=== PATIENT | male | born 1990 | race Caucasian/White ===

== ENCOUNTER 2025-10-19 10:45 | Outpatient (AMB) | payer OTHER, SELFPAY ==
[2025-10-19 10:52] VITALS: BMI 31.4
--- NOTE | 2025-10-19 10:52 | A.PHYSOV_ITS ---
Vital Signs 10/19/25 10:52 Height 5 ft 11 in Weight 225 lb BMI 31.4 Intake Visit Reasons: neck and back pain Intake Note: Patient is a 35 year old male here for back and neck pain. Extension Service Agent Required: No Allergies No Known Allergies Allergy (Verified 10/19/25 10:54) HPI Comments Details: History of Present Illness The patient is a 35 year old individual presenting for follow-up of worsening neck pain. The patient reports being in good condition for the past four weeks, but the pain has recently worsened. The pain originates in the neck, radiates to the middle of the back and around the shoulder blade, and is described as an itching, burning sensation. Associated symptoms include numbness in the left arm and on the side of the back. Patient completed a 6 week physician directed home exercise plan without relief of his symptoms. He has been using gabapentin as well. 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 The patient manages the pain with gabapentin 300 mg at night, as daytime use is not possible due to the job, and reports it is sometimes helpful. A previous MRI from 2022 showed mild narrowing at C5-6 on the left side. Past medical history is notable for a heart problem, and the patient denies any history of diabetes. Pain Description - Onset: The patient had been doing well for about four weeks, but the pain has worsened recently. - Location: The pain begins in the neck and extends to the middle of the back and around the shoulder blade. - Radiation: The pain radiates down the left arm. - Quality: Described as an itching and burning pain. - Associated symptoms: Numbness is present in the left arm and on the side of the back. - Exacerbating factors: Symptoms worsen with driving all day. - Relieving factors: Experiences some relief with gabapentin taken at night. COUNT INCLUDES THE [facility] Social History (Updated 10/19/25 @ 10:55 by Shiolh Moulton MA) Alcohol intake: current Alcohol intake frequency: holidays/special occasions only Patient Tobacco Use Status: Never used Tobacco Use of substances other than those prescribed or required for medical reasons: No Review of Systems Narrative Review of Systems - Neurological: Reports an itching, burning pain with associated numbness in the left arm and on the side of the back. - Musculoskeletal: Reports pain starting in the neck and radiating to the middle back and shoulder blade area. - Cardiovascular: Reports a history of heart problems. - Endocrine: Denies diabetes. Physical Exam Exam Exam: Physical Exam Cervical Spine: Examination of the cervical spine, there is no visible swelling or deformity. He is tender to left upper trapezius to palpation. He is otherwise nontender. Full range of motion of the cervical spine with pain. Special Tests: Axial Compression test: Negative Spurlings test: Negative Lhermitte's sign is Negative Upper Extremities: Full range of motion bilateral upper extremities. Equal cell biologist strength bilaterally. Neuro: Sensation: Intact to upper extremities bilateral to light touch Strength C5 (Elbow Flexion): 5/5 on the left and 5/5 on the right. C6 (Elbow Ext): 5/5 on the left and 5/5 on the right. C7 (Elbow Ext): 5/5 on the left and 5/5 on the right. C8 (Finger Flex): 5/5 on the left and 5/5 on the right. T1 (Finger Abd/Add): 5/5 on the left and 5/5 on the right. DTR: C5 (Biceps): Left 2 Right 2 C6 (Brachioradialis): Left 1 Right 1 C7 (Triceps): Left 2 Right 2 Levin sign: Negative No pathologic clonus. No involuntary movement. Vital Signs: BMI result Body Mass Index 31.4 Assessment & Plan Assessment & Plan (1) Cervical radiculopathy: Code(s): M54.12 - Radiculopathy, cervical region Category: Medical (2) Cervicalgia: Code(s): M54.2 - Cervicalgia Category: Medical Plan Pain Management - Affect: The patient reports the pain is severe, stating, it's killing me. - Analgesia: Takes gabapentin 300 mg at night, which is sometimes helpful. 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 - Activities of Daily Living: Pain is exacerbated by driving all day for work. - Aberrant Drug-Related Behaviors: None reported. Plan Patient was informed and verbally consented to the use of an ambient scribe for clinic note documentation during this visit. 1. Cervical Radiculopathy The patient's symptoms are consistent with the previous 2022 MRI finding of mild C5-6 narrowing on the left, though the condition may have worsened. I recommend the left C6 TFESI with sedation secondary to anxiety and needle phobia.. The goal is at least a 50% reduction in pain for three to six months, with the understanding that this is not a curative treatment. We discussed the risks, complications and benefits. The procedure will be performed under x-ray guidance by Dr. Dee, and the patient has consented to proceed with the option for sedation. A refill for gabapentin 300 mg at night was discussed; the patient will check for existing refills and call if a new prescription is required. A follow-up is scheduled for three weeks post-injection to assess efficacy. Orders: Referrals Physiatry Procedure Notification M54.12 - Radiculopathy, cervical region Coding Level of Care Code Tele Est Pt Level 4 (68339) Diagnoses Cervical radiculopathy M54.12 Cervicalgia M54.2
--- OUTSIDE RECORDS SUMMARY | 2025-10-19 13:04 | XMS_ITS | Clinical Summary ---
Author Organization [facility] Address [address] [place] [address] Phone Care Team Providers Care Solder Cream Maker Name Role Phone Gifty Ortega MD Primary Care Provider [phone] Allergies No known active allergies Medications aspirin 81 mg EC tablet Take 1 Tablet by mouth daily. 05/03/20 24 Active atorvastatin (LIPITOR) 80 mg tablet Take 1 Tablet by mouth daily for 360 days. 09/03/20 24 Active dapagliflozin propanediol (FARXIGA) 10 mg tablet Take 10 mg by mouth daily. 06/02/20 24 Active sacubitriL-valsartan (Entresto) 24-26 mg per tablet Take 1 Tablet by mouth 2 times daily. 05/03/20 24 Active eplerenone (INSPRA) 25 mg tablet Take 1 tablet (25 mg total) by mouth 1 (one) time each day. Active carvediloL (COREG) 3.125 mg tabletIndications:Other cardiomyopathies (CMS/HCC V24, CMS/HCC V28),Chronic systolic (congestive) heart failure (CMS/HCC V24, CMS/HCC V28) TAKE 1 TABLET BY MOUTH 2 TIMES DAILY (WITH MEALS) FOR 180 DAYS. 180 tablet 1 03/08/20 25 Active ezetimibe (ZETIA) 10 mg tabletIndications:Mixed hyperlipidemia TOME 1 TABLETA POR VIA ORAL TODOS LOS SMITH 90 tablet 1 03/08/20 25 Active evolocumab (Repatha SureClick) 140 mg/mL pen injector injectionIndications:Pur e hypercholesterolemia Inject 1 mL (140 mg total) under the skin every 14 (fourteen) days. 6 mL 3 05/19/20 25 Active sacubitriL-valsartan (Entresto) 49-51 mg per tablet Take 1 tablet by mouth 2 (two) times a day. Active Active Problems Problem Noted Date Diagnosed Date Pure hypercholesterolemia 10/13/2024 Assessment & Plan (05/19/2025 10:51 AM EDT): The patient has a history of hyperlipidemia as well as a history of minimal nonobstructive coronary artery disease. LDL uncontrolled and now on evolocumab. Following two dose LDL now well below 70. Continue with atorvastatin and evolocumab. Consider discontinuing ezetimibe. Orders: evolocumab (Repatha SureClick) 140 mg/mL pen injector injection; Inject 1 mL (140 mg total) under the skin every 14 (fourteen) days. Assessment & Plan (01/20/2025 7:37 AM EST): The patient has a history of hyperlipidemia as well as a history of minimal nonobstructive coronary artery disease. Last LDL cholesterol improved to 102. We discussed the importance of an LDL target of 70 or below given his history. He continues on atorvastatin and ezetimibe as prescribed. We discussed possible PCSK9 inhibitor injections today and he would like to recheck his fasting lipid panel and depending on the results, he agrees to initiate a PCSK9 inhibitor if needed. I have reviewed with the patient the importance of a heart healthy lifestyle which includes eating a low-fat low-salt diet, getting regular exercise, maintaining a healthy weight, not smoking, and following up with routine medical care. Orders: Lipid panel; Future evolocumab (Repatha SureClick) 140 mg/mL pen injector injection; Inject 1 mL (140 mg total) under the skin every 14 (fourteen) days. Assessment & Plan (10/13/2024 10:52 AM EST): The patient has a history of hyperlipidemia. He also has a history of minimal nonobstructive coronary artery disease. The patient's last lipid panel showed an LDL level of 154 while on atorvastatin 40 mg orally daily and Zetia 10 mg orally daily. The patient states that he is compliant with his medication. His LDL target is 70 or below given his history of minimal nonobstructive CAD. As such, after his last lipid panel results were reviewed, his atorvastatin was increased to 80 mg orally daily. At this point, we will order a follow-up lipid panel to reevaluate his lipid control anatomically to make any adjustments to his lipid-lowering therapy. Orders: Lipid panel; Future Comprehensive metabolic panel; Future LDL cholesterol, direct; Future Lipid panel Comprehensive metabolic panel LDL cholesterol, direct CAD (coronary artery disease) 09/03/2024 Assessment & Plan (05/19/2025 10:51 AM EDT): The patient was noted to have minimal coronary artery disease on the cardiac CT scan done in May 2024. The study showed mild eccentric noncalcified plaque in the left main causing no significant stenosis, normal LAD, normal circumflex, and normal RCA. No significant coronary artery calcifications were noted. The patient is currently on medical therapy with aspirin, atorvastatin, Zetia, evolocumab and carvedilol. He denies any exertional symptoms. He will continue his current medication regimen. Assessment & Plan (01/20/2025 7:37 AM EST): The patient was noted to have minimal coronary artery disease on the cardiac CT scan done in May 2024. The study showed mild eccentric noncalcified plaque in the left main causing no significant stenosis, normal LAD, normal circumflex, and normal RCA. No significant coronary artery calcifications were noted. The patient is currently on medical therapy with aspirin, atorvastatin, Zetia, and carvedilol. He denies any exertional symptoms. He will continue his current medication regimen. Assessment & Plan (10/13/2024 10:52 AM EST): The patient was noted to have minimal coronary artery disease on the cardiac CT scan done in May 2024. On that study, the patient was noted to have a mild eccentric noncalcified plaque in the left main causing no significant stenosis, normal LAD, normal circumflex, and normal RCA. Furthermore, he did not have any significant coronary artery calcifications. The patient is currently on medical therapy with aspirin, atorvastatin, Zetia, and carvedilol. He denies any exertional symptoms. As such, we will continue his current medication regimen. Chronic HFrEF (heart failure with reduced ejection fraction) (CMS/HCC V24, CMS/HCC V28) 09/03/2024 Assessment & Plan (05/19/2025 10:51 AM EDT): HFrEF-EF 46%, etiology nonischemic Last ischemic work-up: Cardiac CT scan done in May 2024 (no evidence of significant obstructive CAD) Nonischemic cardiomyopathy evaluation: 1. Cardiac MRI done in July 2024 did not show any evidence of an infiltrative cardiomyopathy. 2. Genetic testing ([employer] cardiomyopathy panel): Negative study. GDMT Betablocker: Carvedilol 3.125 mg orally twice daily HOLLEY Inhibitor-CHRISTIANO/ARB/ARNI: Entresto 49/51 mg twice daily Diuretic: None Aldosterone antagonist: Eplerenone 25 mg orally daily SGLT2 inhibitors: None at this time ICD: Not a candidate due to LVEF Patient was recently seen by advanced heart failure at [facility] in March and currently has medication titration plan in place. He has been in close contact with advanced heart failure regarding titration of his medications and reports increase in Entresto. He has laboratory orders already in place as well. Repeat echocardiogram in the next few months. At this point, he will continue to follow with advanced heart failure and he will notify me of any changes in his symptoms. I've asked the patient to call if they develop worsening symptoms of heart failure such as increased shortness of breath, new or worsening cough, increased swelling in the legs or ankles, or weight gain of more than 2 pounds in one day or 4 pounds in one week. Assessment & Plan (01/20/2025 7:37 AM EST): HFrEF-EF 46%, etiology nonischemic Last ischemic work-up: Cardiac CT scan done in May 2024 (no evidence of significant obstructive CAD) Nonischemic cardiomyopathy evaluation: 1. Cardiac MRI done in July 2024 did not show any evidence of an infiltrative cardiomyopathy. 2. Genetic testing ([employer] cardiomyopathy panel): Negative study. GDMT Betablocker: Carvedilol 3.125 mg orally twice daily HOLLEY Inhibitor-CHRISTIANO/ARB/ARNI: Entresto 24-26 mg twice daily Diuretic: None Aldosterone antagonist: Eplerenone 25 mg orally daily SGLT2 inhibitors: None at this time ICD: Not a candidate due to LVEF Patient was recently seen by advanced heart failure at [facility] in November and currently has medication titration plan in place. He has been in close contact with advanced heart failure regarding titration of his medications and reports he was told to soon start Farxiga. He has laboratory orders already in place as well. He also has plans for titration increasing Entresto increasing carvedilol in the next few weeks. At this point, he will continue to follow with advanced heart failure and he will notify me of any changes in his symptoms. I've asked the patient to call if they develop worsening symptoms of heart failure such as increased shortness of breath, new or worsening cough, increased swelling in the legs or ankles, or weight gain of more than 2 pounds in one day or 4 pounds in one week. Assessment & Plan (10/13/2024 10:52 AM EST): The patient has heart failure with reduced ejection fraction. Etiology: Nonischemic Last ischemic work-up: Cardiac CT scan done in May 2024 (no evidence of significant obstructive CAD) Nonischemic cardiomyopathy evaluation: 1. Cardiac MRI done in July 2024 did not show any evidence of an infiltrative cardiomyopathy. 2. Genetic testing ([email or web address] cardiomyopathy panel): Negative study. Last documented LVEF: 46% on cardiac MRI done in July 2024 Current symptom classification: NYHA class 2 Guideline directed medical therapy: 1. Beta-blockers: Carvedilol 3.125 mg orally twice daily 2. ARNI / CHRISTIANO inhibitor / ARB: Entresto 24/26 mg orally twice a day 3. MRA: Spironolactone 25 mg orally daily 4. SGL2 inhibitor: Farxiga 10 mg orally daily Candidate for ICD or BATH SOLUTION MAKER: Not a candidate due to the LVEF Assessment and plan: 34 years old male patient with evidence of a mild nonischemic cardiomyopathy. Previous cardiac CT scan did not show any significant obstructive CAD; previous cardiac MRI did not show any evidence of an infiltrative cardiomyopathy or hypertrophic cardiomyopathy; genetic testing (cardiomyopathy panel) was negative. The patient is currently on day 4 pillars of GDMT. Cardiac MRI showed an LVEF of 46%. He has occasional episodes of lightheadedness when going from a sitting to a standing position. As such, we will continue his current doses of his GDMT regimen. Given his age and current inability to uptitrate his GDMT regimen, will refer the patient for an evaluation with a heart failure clinic at [facility]. Snoring 05/26/2024 Assessment & Plan (05/19/2025 10:51 AM EDT): The patient has a history of nighttime snoring and was previously ordered for a sleep study which was scheduled for September 2024, however the patient had to reschedule this appointment. He still needs to schedule sleep study. Assessment & Plan (01/20/2025 7:37 AM EST): The patient has a history of nighttime snoring and was previously ordered for a sleep study which was scheduled for September 2024, however the patient had to reschedule this appointment. I have given him the number to reschedule the sleep study. Assessment & Plan (10/13/2024 10:52 AM EST): The patient has a history of nighttime snoring. He also has a history of a cardiomyopathy. Sleep study scheduled for September 2024. Cardiomyopathy (CMS/HCC V24, CMS/HCC V28) 2021 Assessment & Plan (10/13/2024 10:52 AM EST): Resolved Problems Problem Noted Date Diagnosed Date Resolved Date Chest pain 10/01/2024 01/19/2025 Assessment & Plan (10/13/2024 10:52 AM EST): The patient has a longstanding history of episodes of chest discomfort. The description of his symptoms is consistent with atypical chest discomfort. Cardiac CT scan done in May 2024 did not show any significant obstructive coronary artery disease. Therefore, his symptoms are unlikely to be secondary to ischemic heart disease. At this point, his chest discomfort symptoms are likely secondary to a noncardiac cause such as musculoskeletal chest discomfort. HLD (hyperlipidemia) 05/03/2024 024 Overview (10/01/2024): Last Assessment & Plan: The patient has been found to have hyperlipidemia. Recent lipid panel showed total cholesterol 260, triglycerides 183, HDL 49, and direct LDL 168. During today's visit, we had an extensive conversation regarding his elevated cholesterol levels. We discussed the role of lifestyle modification versus starting medications for his cholesterol. At the end of the conversation, the patient will want to further attempt lifestyle modifications. We discussed the necessary changes that he needs to make regarding his diet. We also discussed the role of weight loss. We also discussed the role of alcohol consumption and his elevated cholesterol levels. The patient will try to cut down his alcohol consumption. Will recheck his lipid panel in 2 months. Depending on the results, then we will consider starting him on lipid-lowering therapy. Encounters Date Type Department Care Team Description 10/04/2025 Results Follow-Up [facility] [address] [place] [address] Dora Mcintyre NP from Last 3 Months Surgical History Surgery Date Site/Laterality Comments COLONOSCOPY PROCEDURE: HISTORICAL COLONOSCOPY; COMMENT: change in bowel habits Medical History Medical History Date Comments Chest pain DX:Chest pain Dizziness DX:Dizziness SOB (shortness of breath) DX:SOB (shortness of breath) Blood in stool DX:Blood in stoo l Chronic diarrhea DX:Chronic diar nitesh Class 1 obesity DX:Class 1 obesi ty Rectal or anal pain DX:Rectal or anal pain Tubular adenoma of colon DX:Tubu lar adenoma of colon Acute chest pain DX:Acute chest pain Anxiety DX:Anxiety Social History Tobacco Use Types Packs/Day Years Used Date Smoking Tobacco: Some Days Cigarettes Smokeless Tobacco: Never Tobacco Cessation:Ready to Q uit: Not Asked; Counseling Given: Not Answered Comments:Couple cigarettes per wk Alcohol Use Standard Drinks/Week Comments Yes 0 (1 standard drink = 0.6 oz pur e alcohol) 1 drink every couple weeks Sex and Gender Information Value Date Recorded Sex Assigned at Not on file Legal Sex Male 4:17 AM EST Gender Identity Not on file Sexual Orientation Not on file Obstetrics History Last Filed Vital Signs Vital Sign Reading Time Taken Comments Blood Pressure 112/80 05/19/2025 9:48 AM EDT Pulse 74 05/19/2025 9:48 AM EDT Temperature - - Respiratory Rate - - Oxygen Saturation 100% 05/19/2025 9:48 AM EDT Inhaled Oxygen Concentration - - Weight 102 kg (224 lb) 05/19/2025 9:48 AM EDT Height 180.3 cm (5' 11 ) 05/19/2025 9:48 AM EDT Body Mass Index 31.24 05/19/2025 9:48 AM EDT Plan of Treatment Upcoming Encounters Date Type Department Care Team (Late st Contact Info) Description 12/20/2025 8:50 AM EST Office Visit [facility] [address] [place] [address] Hao Kulkarni MD [address] [place] [address] [address] [place] [address] Health Maintenance Due Date Last Done Comments Hepatitis B Vaccines (1 of 3 - 19+ 3-dose series) 2009 HPV Vaccines (1 - 3-dose SCDM series) 2017 Pneumococcal Vaccine: Pediatrics (0 to 5 Years) and At-Risk Patients (6 to 49 Years) (2 of 2 - PCV) 07/23/2020 07/23/2019 HIV Screening 11/03/2022 Hepatitis C Screening 11/03/2022 Social Influencers of Health Screening 11/03/2022 Depression Screening 11/24/2024 COVID-19 Vaccine ( - season) 2025 Influenza Vaccine (#1) 2025 10/10/2022 Hypertension/CHF/CAD Annual BMP Blood Test 10/19/2025 10/19/2024 Colorectal Cancer Screening: Colonoscopy 07/23/2026 07/23/2021 DTaP,Tdap,and Td Vaccines (2 - Td or Tdap) 08/14/2028 08/14/2018 Cholesterol Screening (Lipid Panel) 09/01/2030 09/01/2025, 05/18/2025, 03/30/2025, Additional history exists RSV Immunization Adult Patients (1 - 1-dose 75+ series) 2065 HIB Vaccines Aged Out No longer eligi ble based on patient's age to complete this topic Hepatitis A Vaccines Aged Out No long er eligible based on patient's age to complete this topic IPV Vaccines Aged Out No longer eligi ble based on patient's age to complete this topic MMR Vaccines Aged Out No longer eligi ble based on patient's age to complete this topic Meningococcal ACWY Vaccine Aged Out N o longer eligible based on patient's age to complete this topic Meningococcal B Vaccine Aged Out No l onger eligible based on patient's age to complete this topic RSV Immunization Patients Under 20 months Aged Out No longer eligible based on patient's age to complete this topic Varicella Vaccines Aged Out No longer eligible based on patient's age to complete this topic Procedures Procedure Name Priority Date/Time Associated Diagnosis Comments LIPID PANEL Routine 09/01/2025 11:28 AM EDT COMPREHENSIVE METABOLIC PANEL Routine 10/19/2024 9:16 AM EST Pure hypercholesterolemia from Last 3 Months or Most Recently Relevant to Health Maintenance Results * (ABNORMAL) Lipid panel (09/01/2025 11:28 AM EDT) Cholesterol Total 145 100 - 199 mg/dL [facility] Triglycerides 153(H) 0 - 149 mg/dL [facility] HDL Cholesterol 57 >39 mg/dL [facility] VLDL Cholesterol Calculated 26 5 - 40 mg/dL [facility] LDL Chol Calc (NIH) 62 0 - 99 mg/dL [facility] 1 09/01/2025 11:2 8 AM EDT 09/01/2025 Narrative [facility] 1 - 09/02/2025 1:06 AM EDT Performed at: - [facility] [id number] [place] Crewmember: Leela Jefferson MD, Phone: [phone] us Hao Kulkarni MD LAB BLOOD ORDERABLES F inal Result [facility] * (ABNORMAL) Comprehensive metabolic panel (10/19/2024 9:16 AM EST) Glucose 89 70 - 99 mg/dL [facility] 1 Blood Urea Nitrogen (BUN) 13 6 - 20 mg/dL [facility] 1 Creatinine 1.03 0.76 - 1.27 mg/dL [facility] 1 eGFR 98 >59 mL/min/1. 73 [facility] 1 BUN/Creatinine Ratio 13 9 - 20 [facility] 1 Sodium 139 134 - 144 mmol/L [facility] 1 Potassium 4.6 3.5 - 5.2 mmol/L [facility] 1 Chloride 103 96 - 106 mmol/L [facility] 1 Carbon Dioxide 21 20 - 29 mmol/L [facility] 1 Calcium 9.3 8.7 - 10.2 mg/dL [facility] 1 Protein Total 6.8 6.0 - 8.5 g/dL [facility] 1 Albumin 4.6 4.1 - 5.1 g/dL [facility] 1 Globulin Total 2.2 1.5 - 4.5 g/dL [facility] 1 Bilirubin Total 0.6 0.0 - 1.2 mg/dL [facility] 1 Alkaline Phosphatase 55 44 - 121 IU/L [facility] 1 Aspartate aminotransferase (AST) 26 0 - 40 IU/L [facility] 1 Alanine Aminotransferase (ALT) 49(H) 0 - 44 IU/L [facility] 1 Blood Venous blood specimen / Unknown 10/19/2024 9:16 AM EST 10/19/2024 Narrative [facility] 1 - 10/20/2024 4:07 AM EST Performed at: 01 - [facility] [address] [id number] [place] Crewmember: Leela Jefferson MD, Phone: [phone] Hao Kulkarni MD LAB BLOOD ORDERABLES F inal Result [facility] 1 from Last 3 Months or Most Recently Relevant to Health Maintenance Insurance [facility] MEDICAID ADVANTAGE Care Teams Solder Cream Maker Relationship Specialty Start Date End Date Gifty Ortega MD [address] [place] [id number] PCP - General 01/19/25
== END 2025-10-19 11:16 | disposition home or self-care (01) ==
LOC: HO.HPHYS 10:45
PROVIDERS: PCP Registered Nurse; Visit Provider Physician Assistant
DX: M54.12 Radiculopathy, cervical region (principal); M54.2 Cervicalgia
CPT/HCPCS: 99214

== ENCOUNTER 2025-11-07 07:43 | Day surgery (SDC) | payer OTHER, SELFPAY ==
--- NOTE | 2025-11-02 14:23 | HO.ANESPROP2 ---
Documented by User: Anh Crews NP 11/02/25 14:32 HPI - Anesthesia Eval Consult details Narrative: 35yo M for Left C6 Cervical Transforaminal TALIA Follows Cardiology and [facility] for HF with mildly reduced EF d/t non-ischemic CMP. Seen in office 04/2025 and 09/2025 respectively. Updated testing below Anesthesia Pre-Procedure Meds Is the patient on any of the following meds?: SGLT2 Inhib PMFSH Active Problems Active Problems: All Active Problems Cervicalgia (Acute) Cervical radiculopathy (Acute) Past Medical History Medical History Obese Diarrhea Blood in stool GERD (gastroesophageal reflux disease) HLD (hyperlipidemia) Nonischemic cardiomyopathy Surgical History Surgical History Hx of appendectomy History of esophagogastroduodenoscopy (EGD) H/O colonoscopy Social History Social History Alcohol intake: current Alcohol intake frequency: holidays/special occasions only Patient Tobacco Use Status: Never used Tobacco Advance Directives: No Advance Directives Information Provided: Yes Meds Allergies Allergy/AdvReac Type Severity Reaction Status Date / Time No Known Allergies Allergy Verified 10/19/25 10:54 Home Medications ?Medication ?Instructions ?Recorded ?Confirmed ?Last Taken ?Type dapagliflozin propanediol 10 mg 10 mg PO DAILY 10/19/25 11/03/25 Unknown History tablet (Farxiga) eplerenone 25 mg tablet (Inspra) 25 mg PO DAILY 10/19/25 11/03/25 Unknown History evolocumab 140 mg/mL subcutaneous 140 mg subcut Q2W 10/19/25 11/03/25 Unknown History pen injector (Repleidy Andersen) ezetimibe 10 mg tablet 10 mg PO DAILY 10/19/25 11/03/25 Unknown History gabapentin 100 mg capsule 200 mg PO BEDTIME 10/19/25 11/03/25 Unknown History meloxicam 7.5 mg tablet 7.5 mg PO DAILY PRN Pain 10/19/25 11/03/25 Unknown History sacubitril 49 mg-valsartan 51 mg 1 tab PO BID 10/19/25 11/03/25 Unknown History tablet acetaminophen 500 mg tablet 1,000 mg PO Q6H PRN Pain 11/03/25 11/03/25 Unknown History aspirin 81 mg tablet 81 mg PO DAILY 11/03/25 11/03/25 Unknown History carvedilol 3.125 mg tablet 3.125 mg PO BID 11/03/25 11/03/25 Unknown History sucralfate 100 mg/mL oral 10 ml PO TID 11/03/25 11/03/25 Unknown History suspension Exam Pertinent Lab Results Pertinent Lab Results: Narrative Narrative: EKG 02/2025 Ventricular Rate: 65 BPM Atrial Rate: 65 BPM P-R Interval: 152 ms QRS Duration: 106 ms Q-T Interval: 386 ms QTC Calculation(Bazett): 401 ms P Hunter: 62 degrees R Hunter: 23 degrees T Hunter: 38 degrees Normal sinus rhythm Normal ECG When compared with ECG of 15-Dec-2024 12:48, No significant change was found Confirmed by MISTY WHITTAKER MD ([id number]) on 03/23/2025 8:09:20 PM Echocardiogram 08/2025 Summary 1) The LV systolic function is mildly reduced. The left ventricular ejection fraction is 45-50%. There is mild global hypokinesis of the left ventricle. 2) Normal diastolic function. The global longitudinal strain (GLS) from 2D analysis is -18.2 % (normal absolute value > 18%). 3) The right ventricular size is at the upper limits of normal. Right ventricular systolic function appears preserved. 4) The mitral valve appears mildly thickened. There is trace mitral regurgitation. ? ? Exercise nuclear stress test was ordered and completed in August 2022 which revealed normal exercise nuclear perfusion test at target heart rate. No definitive perfusion defect to suggest ischemia or infarct. ?Normal left ventricular size and systolic function with LVEF 63%. ? Holter monitor (May 2024):?NSR. ?Average heart rate 66 bpm. ?Heart rate range 41-145 bpm. ? ?Cardiac CT scan (May 2024): Image quality is excellent. ?The contrast-enhancement is excellent.??No significant extracardiac findings. Normal RV size and morphology. ?Normal LV size and morphology. ?Normal trileaflet aortic valve. ?No coronary artery calcifications. ?There is a mild eccentric noncalcified plaque in the left main coronary artery causing no significant stenosis. ?This is associated with minimal positive remodeling. ? Cardiac MRI (08/02/2024): Overall good image quality. ?Mildly reduced left ventricular systolic function with a left ventricular ejection fraction of 46%. Mild global hypokinesis. ?Low normal RV systolic function (RVEF 41%). ?No significant RV regional wall motion abnormalities. ?No visual evidence of significant valve dysfunction. ?Myocardial T1 imaging with no evidence of diffuse fibrosis. ?Myocardial T2 imaging revealed no evidence of myocardial edema. ?Delayed contrast enhancement demonstrate no evidence of late gadolinium?enhancement. ? Assessment and Plan Assessment Anesthesia Assessment: Chart Reviewed Documented by User: Mirella Jones MD 11/07/25 08:36 [facility] Past Medical History Medical History Obese Diarrhea Blood in stool GERD (gastroesophageal reflux disease) HLD (hyperlipidemia) Nonischemic cardiomyopathy Family History Family history of problems with anesthesia: No Surgical History Surgical History Hx of appendectomy History of esophagogastroduodenoscopy (EGD) H/O colonoscopy History of Problems with Anesthesia: No Social History Social History Alcohol intake: current Alcohol intake frequency: holidays/special occasions only Patient Tobacco Use Status: Never used Tobacco Advance Directives: No Advance Directives Information Provided: Yes Meds Allergies Allergy/AdvReac Type Severity Reaction Status Date / Time No Known Allergies Allergy Verified 10/19/25 10:54 Home Medications ?Medication ?Instructions ?Recorded ?Confirmed ?Last Taken ?Type dapagliflozin propanediol 10 mg 10 mg PO DAILY 10/19/25 11/03/25 Unknown History tablet (Farxiga) eplerenone 25 mg tablet (Inspra) 25 mg PO DAILY 10/19/25 11/03/25 Unknown History evolocumab 140 mg/mL subcutaneous 140 mg subcut Q2W 10/19/25 11/03/25 Unknown History pen injector (Wei AmezcuaNickschuyler) ezetimibe 10 mg tablet 10 mg PO DAILY 10/19/25 11/03/25 Unknown History gabapentin 100 mg capsule 200 mg PO BEDTIME 10/19/25 11/03/25 Unknown History meloxicam 7.5 mg tablet 7.5 mg PO DAILY PRN Pain 10/19/25 11/03/25 Unknown History sacubitril 49 mg-valsartan 51 mg 1 tab PO BID 10/19/25 11/03/25 Unknown History tablet acetaminophen 500 mg tablet 1,000 mg PO Q6H PRN Pain 11/03/25 11/03/25 Unknown History aspirin 81 mg tablet 81 mg PO DAILY 11/03/25 11/03/25 Unknown History carvedilol 3.125 mg tablet 3.125 mg PO BID 11/03/25 11/03/25 Unknown History sucralfate 100 mg/mL oral 10 ml PO TID 11/03/25 11/03/25 Unknown History suspension Exam Airway Mallampati Class: II TM Dist: >3cm Neck ROM: Full Heart: rrr Lungs: cta Assessment and Plan Assessment Anesthesia Assessment: Anesthesia Plan Discussed Final Anesthetic Review Family History of Problems with Anesthesia: No History of Problems with Anesthesia: No NPO: Yes ASA Class: III Final Preanesthetic Review: No Changes in Pt Med Stat, Meds/Allgs Chart Reviewed, Consent Obtained/Reviewed and Anes Risks/Benef Reviewed Patient Risk: Intermediate Procedure Risk: Low Anesthetic Plan Anesthetic Plan: MAC: and Agree w/ Assess. and Plan Disposition: Standard PACU
--- OUTSIDE RECORDS SUMMARY | 2025-11-02 22:07 | XMS_ITS | Clinical Summary ---
Author Organization [facility] Address [address] [place] [address] Phone Care Team Providers Care Boiler Riveter Name Role Phone Gifty Ortega MD Primary Care Provider [phone] Allergies No known active allergies Medications aspirin [...] HFrEF (heart failure with reduced ejection fraction) 09/03/2024 Assessment & Plan (05/19/2025 10:51 AM [...] recently seen by advanced heart failure at [facility] in March and currently has medication [...] recently seen by advanced heart failure at [facility] in November and currently has medication [...] of an infiltrative cardiomyopathy. 2. Genetic testing ([employer]itae cardiomyopathy panel): Negative study. Last documented LVEF: [...] mg orally daily Candidate for ICD or HEALTH CARE ADMINISTRATOR: Not a candidate due to the LVEF [...] evaluation with a heart failure clinic at [facility]. Snoring 05/26/2024 Assessment & Plan (05/19/2025 10:51 [...] Sleep study scheduled for September 2024. Cardiomyopathy 07/19/2022 Assessment & Plan (10/13/2024 10:52 AM EST): [...] Department Care Team Description 10/04/2025 Results Follow-Up [facility] [address] [place] [address] Dora Mcintyre NP from Last [...] on file Sexual Orientation Not on file Last Filed Vital Signs Vital Sign Reading [...] Description 12/20/2025 8:50 AM EST Office Visit [facility] [address] [place] [address] Hao Kulkarni MD [address] [place] [address] [address] [place] [address] Health Maintenance Due Date Last [...] 10/10/2022 Hypertension/CHF/CAD Annual BMP Blood Test 10/19/2025 10/19/2024, 10/22/2023 Colorectal Cancer Screening: Colonoscopy 07/23/2026 07/23/2021 DTaP,Tdap,and [...] - 09/02/2025 1:06 AM EDT Performed at: 01 - [facility] [id number] Desizing Pad Operator: Leela Jefferson MD, Phone: [phone] Hao Kulkarni MD LAB BLOOD ORDERABLES F [...] AM EST Performed at: 01 - [facility] [address] [id number] Desizing Pad Operator: Leela Jefferson MD, Phone: [phone] Hao Kulkarni MD LAB BLOOD ORDERABLES F inal Result [facility] 1 from Last 3 Months or Most Recently Relevant to Health Maintenance Insurance * Guarantor: Demarcus Patton Account Type Relation to Patient Date of Phone Billing Address Personal/Family Self [address] [facility] [address] [place] [address] [facility] [employer]AGE [address] [place] [address] Care Teams Boiler Riveter Relationship Specialty Start Date End Date Gifty Ortega MD [address] [place] [address] PCP - General 01/19/25
[2025-11-03 10:27] VITALS: BMI 32.6
--- NOTE | ~2025-11-07 | FL_ITS ---
EXAMINATION: FL GUIDANCE ONLY HISTORY: Procedural guidance COMPARISON: None available. TECHNIQUE: Fluoroscopy time: 13 seconds. Cumulative Dose: 1.60 mGy. DAP: 53.71 uGym2 Images: 2. FINDINGS: Fluoroscopic spot films of the neck demonstrate a needle and contrast material in place on the left. FL/FL guidance in OR IMPRESSION: Fluoroscopy during procedure. Please see procedure report for additional information. Electronically signed by: Yonatan Anderson MD 11/08/2025 07:14 AM [facility]
[2025-11-07 08:52] VITALS: BP 113/75; PULSE 53; RESP 15; TEMP 36.6; O2SAT 98
--- NOTE | 2025-11-07 09:33 | MHC.SHP ---
Pre-Procedural Eval Section A - 24 Hr Update-Section A only Date of Service: 11/07/25 The patient is an INPATIENT: No The patient has been examined within 24 hours of the surgical procedure. The History & Physical has been completed within 30 days and I have reviewed it.: Yes Section B - Complete if H&P > 30 days Chief Complaint: Radiculopathy, cervical region Allergies: Allergies Allergy/AdvReac Type Severity Reaction Status Date / Time No Known Allergies Allergy Verified 11/07/25 09:02 Plan I have reviewed the history and physical and performed a pertinent physical examination on my patient. No changes have occurred unless specified. Time Spent With Patient Time: Total time managing care of this patient today ____ minutes.
--- NOTE | 2025-11-07 09:34 | W.PM.OPN ---
Operative Note Operative Note Date of Service: 11/07/25 Narrative: Procedure performed: Left C6 TFESI Preop diagnosis: Cervical radiculitis Postop diagnosis: The same Anesthesia: Local After informed consent was obtained patient was brought into the procedure room and placed in supine position on the procedure table. Skin over left side of the neck was prepped and draped in the usual sterile manner. C6 neural foramen was visualized utilizing fluoroscopy. 3.5 in 25 gauge spinal needle was introduced percutaneously and advanced toward the posterior pillar at the indicated level at about 1 o'clock position. Once contact with the bone was reached, needle was then redirected into the outer 3rd of the neural foramen as was demonstrated on AP and lateral fluoroscopic images. Needle placement was verified utilizing 1 cc of Omnipaque contrast solution. Additional 1 cc of solution was injected under live fluoroscopy. Excellent flow through the neural foramen without evidence of vascular uptake was visualized. 1 cc of 1% preservative-free lidocaine was injected and patient was observed for 60 seconds. 20 mg of preservative-free dexamethasone was injected after negative aspiration for blood and cerebrospinal fluid. Patient tolerated procedure very well without complications. Radiation exposure was documented in the chart.
--- NOTE | 2025-11-07 09:47 | PC.NURSE ---
late entry--changed to local only--no iv needed
[2025-11-07 10:06] VITALS: BP 122/91; PULSE 64; RESP 16; TEMP 37; O2SAT 98
== END 2025-11-07 10:16 | disposition home or self-care (01) ==
PROVIDERS: PCP Internal Medicine; Visit Provider Physical Medicine & Rehabilitation
PROC: (CPT 64479; principal; 2025-11-07 09:40)
DX: M54.12 Radiculopathy, cervical region (principal); M54.2 Cervicalgia; M54.9 Dorsalgia, unspecified; R20.0 Anesthesia of skin; Z79.899 Other long term (current) drug therapy
CPT/HCPCS: 64479; J1100; J2003; Q9967

== ENCOUNTER → 2025-11-07 07:43 | Outpatient (BNV) | payer OTHER, SELFPAY | PROVIDERS: PCP Internal Medicine; Visit Provider Physical Medicine & Rehabilitation | DX: M54.12 Radiculopathy, cervical region (principal) | CPT/HCPCS: 64479 ==